=== PATIENT | female | born 1950 | race Caucasian/White ===

== ENCOUNTER 2024-01-15 10:41 | Emergency (ER) | payer MEDICARE, OTHER, SELFPAY ==
[2024-01-15 11:03] VITALS: BP 96/59; PULSE 102; TEMP 36.5; O2SAT 99
[2024-01-15 11:15] VITALS: BP 107/87
[2024-01-15 11:38] LABS: Appearance Urine Cloudy (Clear); Bacteria Urine None Seen /hpf; Bilirubin Urine Negative (Negative); Blood Urine 3+ (Negative); Color Urine Yellow (Yellow); Glucose Urine UA Negative (Negative); Ketones Urine 1+ mg/dL (Negative); Leukocyte Esterase Ur 2+ LEU/UL (Negative); Nitrate Urine Negative (Negative); Non Pathogenic Casts 0-2; Protein Urine 2+ mg/dL (Negative); RBC Urine >100 /hpf (0-2); Specific Grav Ur 1.025 (1.001-1.035); Squamous Epithelial Cell Urine Occasional /hpf (Few); WBC Clumps Urine Present /HPF; WBC Urine >100 /hpf (0-3)
[2024-01-15 11:44] LABS: Add Urine Microscopic? YES
--- NOTE | 2024-01-15 12:01 | ED.GENADULT ---
HPI - General Adult General Chief complaint: Urogenital-Female Stated complaint: UTI Time Seen by Provider: 01/15/24 10:56 History of Present Illness HPI narrative: Patient is a 73-year-old female who presents to the ER with burning urination. ongoing for last 2 days. Has urinary frequency as well. No back pain. No nausea or vomiting. No fevers. Feels similar to previous UTI. Related Data Allergies Allergy/AdvReac Type Severity Reaction Status Date / Time No Known Allergies Allergy Verified 01/15/24 11:14 Review of Systems Constitutional: Constitutional: Reports no additional constitutional complaints Gastrointestinal: Gastrointestinal: Denies abdominal pain, Denies nausea and Denies vomiting Comments: No flank pain Genitourinary: Genitourinary: Denies hematuria, Reports nocturia and Reports dysuria Exam Narrative: GENERAL: Well-appearing, well-nourished, and in no acute distress. HEAD: Normocephalic, atraumatic. ENT: Mucous membranes moist. BACK: No CVA tenderness EXTREMITIES: Normal range of motion. No edema. NEURO: Alert and oriented x3. PSYCH: Normal mood and affect. Course Course Emergency Course: discharged with cephalexin. Vital Signs Vital signs: Vital Signs Temperature 97.7 F 01/15/24 11:03 Pulse Rate 102 H 01/15/24 11:03 Blood Pressure 96/59 L 01/15/24 11:03 Pulse Oximetry 99 01/15/24 11:03 Temperature 97.7 F 01/15/24 11:03 Pulse Rate 95 01/15/24 12:13 Respiratory Rate 17 01/15/24 12:13 Blood Pressure 108/88 01/15/24 12:13 Pulse Oximetry 99 01/15/24 12:13 Medical Decision Making Vital Signs Vital Signs: Vital Signs Temperature 97.7 F 01/15/24 11:03 Pulse Rate 102 H 01/15/24 11:03 Blood Pressure 96/59 L 01/15/24 11:03 Pulse Oximetry 99 01/15/24 11:03 Temperature 97.7 F 01/15/24 11:03 Pulse Rate 95 01/15/24 12:13 Respiratory Rate 17 01/15/24 12:13 Blood Pressure 108/88 01/15/24 12:13 Pulse Oximetry 99 01/15/24 12:13 Lab Data Labs: Lab Results 01/15/24 Range/Units 11:08 Urine Color Yellow (Yellow) Urine Appearance Cloudy H (Clear) Urine pH 6.0 (5.0-9.0) Ur Specific [place] 1.025 (1.001-1.035) Urine Protein 2+ H (Negative) mg/dL Urine Glucose (UA) Negative (Negative) mg/dL Urine Ketones 1+ H (Negative) mg/dL Ur Blood (Man) 3+ H (Negative) Urine Nitrate Negative (Negative) Urine Bilirubin Negative (Negative) Urine Urobilinogen 1.0 (<2.0) mg/dL Leukocyte Esterase Rfl 2+ H (Negative) SOLOMON/UL Urine RBC >100 H (0-2) /hpf Urine WBC >100 H (0-3) /hpf Urine WBC Clumps Present H (None) /HPF Ur Squamous Epith Cells Occasional (Few) /hpf Urine Bacteria None seen /hpf Urine Casts 0-2 Discharge Plan Discharge Clinical Impression: Urinary tract infection Patient Disposition: Home, Self-Care Condition: Stable Instructions: Antibiotic Form, Urinary Incontinence (ED) Additional Instructions: You should return to the emergency department if you develop severe nausea and vomiting and are unable to keep liquids down, if you develop severe back/flank or stomach pain, or if your symptoms are not clearly improving at home. Prescriptions: New cephalexin 500 mg capsule 500 mg PO Q12H Qty: 14 0RF phenazopyridine [Pyridium] 100 mg tablet 100 mg PO TID Qty: 6 0RF Follow-up/Referrals: PHYSICIAN NOT ON STAFF,NONSTAFF [Primary Care Provider] - 1 Week
[2024-01-15 12:13] VITALS: BP 108/88; PULSE 95; RESP 17; O2SAT 99
== END 2024-01-15 12:14 | disposition home or self-care (01) ==
PROVIDERS: Emergency Provider Emergency Medicine
DX: N39.0 Urinary tract infection, site not specified (principal)
CPT/HCPCS: 81001; 87086; 87088; 99283